=== PATIENT | male | born 1980 | race Caucasian/White ===

== ENCOUNTER 2017-02-14 12:57 | Emergency (ER) | payer MEDICAID, OTHER ==
[2017-02-14 13:04] VITALS: BP 120/75; PULSE 78; RESP 17; TEMP 97.7; O2SAT 96
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
== END 2017-02-14 13:34 | disposition home or self-care (01) ==
DX: S62.306A Unspecified fracture of fifth metacarpal bone, right hand, initial encounter for closed fracture (principal); M20.011 Mallet finger of right finger(s); F17.200 Nicotine dependence, unspecified, uncomplicated; X58.XXXA Exposure to other specified factors, initial encounter